=== PATIENT | female | born 1940 | race Caucasian/White ===

== ENCOUNTER 2017-12-13 11:10 | Outpatient (CLI) | payer OTHER | END 2017-12-13 13:20 | disposition home or self-care (01) | LOC: EKG 11:10 | DX: I10 Essential (primary) hypertension (principal) ==

== ENCOUNTER 2017-12-23 06:35 | Day surgery (SDC) | payer OTHER ==
[~2017-12-23 06:35] MED LIST: AVALIDE PO; CATAPRES0.3 M1 PO; FOSAMAX70 MG PO; JANUVIA50 MG PO; PLAVIX75 MG PO; TAMOXIFEN CITRA20 MG PO; TRANXENE PO; VERAPAMIL ER240 MG PO; ZANTAC150 M3 PO
[2017-12-23] MEDS ORDERED: DICLOFENAC POTA50 MG PO (16:03)
[2017-12-23] MEDS ORDERED: ZITHROMAX500 MG PO (16:03)
== END 2017-12-23 20:20 | disposition home or self-care (01) ==
LOC: CIR.AMB 06:35
DX: N84.0 Polyp of corpus uteri (principal)